=== PATIENT | male | born 1950 | race Caucasian/White ===

== ENCOUNTER 2021-07-19 17:57 | Inpatient (IN) | payer MEDICAID ==
[~2021-07-19] VITALS: Ht 167.6 cm; Wt 63.5 kg
[2021-07-19 21:35] LABS: COVID AG,FIA SOURCE NASOPHARYNGEAL
[2021-07-19 22:53] LABS: BASOPHILS % (AUTO) 0.6 % (0.0-2.0); EOSINOPHILS % (AUTO) 0.8 % (1.0-6.0); HEMATOCRIT 36.8 % (41-53); HEMOGLOBIN 12.7 g/dL (13.5-17.5); LYMPHOCYTES # (AUTO) 0.7 K/uL (1.0-4.8); LYMPHOCYTES % (AUTO) 18.8 % (22.0-44.0); MEAN CORPUSCULAR HEMOGLOBIN 34.3 pg (26.0-34.0); MEAN CORPUSCULAR HGB CONC 34.5 G/dL (31.0-37.0); MEAN CORPUSCULAR VOLUME 100 fL (80-100); MONOCYTES # (AUTO) 0.4 K/uL (0.1-1.0); MONOCYTES % (AUTO) 12.2 % (2.0-9.0); NEUTROPHILS # (AUTO) 2.3 K/uL (1.8-7.7); NEUTROPHILS % (AUTO) 67.6 % (40.0-70.0); PLATELET COUNT (AUTO) 154 K/uL (150-450); RED CELL DISTRIBUTION WIDTH 13.7 % (11.5-14.5)
[2021-07-19 23:07] LABS: ALANINE AMINOTRANSFERASE 26 U/L (12-78); ALBUMIN 3.1 g/dL (3.4-5.0); ALKALINE PHOSPHATASE 98 U/L (46-116); ANION GAP 7 mmol/L (8-16); ASPARTATE AMINOTRANSFERASE 36 U/L (15-37); BILIRUBIN,TOTAL 0.6 mg/dL (0.1-1.0); CALCIUM, TOTAL 8.6 mg/dL (8.8-10.5); CARBON DIOXIDE 28 mmol/L (22-29); CHLORIDE 102 mmol/L (98-107); CREATININE 0.99 mg/dL (0.60-1.30); GLUCOSE,RANDOM 83 mg/dL (70-110); SODIUM SERUM 137 mmol/L (136-145); TOTAL PROTEIN, SERUM 6.5 g/dL (6.4-8.2); UREA NITROGEN, BLOOD 12 mg/dL (7-18)
[2021-07-19 23:10] LABS: GLOMERULAR FILTR. RATE CALC > 60 mL/min (>60)
[2021-07-19] MEDS ORDERED: POTASSIUM CHLORIDE 20 MEQ ER TABLET PO ONE (23:45)
[2021-07-20 00:33] LABS: CHOL/HDL RATIO 3.2 (4.2-7.3); CHOLESTEROL 137 mg/dL (131-200); HDL CHOLESTEROL 43 mg/dL (40-60); LDL CHOL (CALC.) 73 mg/dL (0-130); TRIGLYCERIDES 104 mg/dL (15-150)
[2021-07-20 04:13] LABS: APPEARANCE,URINE CLEAR (CLEAR); BILIRUBIN,URINE NEGATIVE (NEGATIVE); GLUCOSE, URINE (UA) NEGATIVE (NEGATIVE); KETONES,URINE NEGATIVE (NEGATIVE); LEUKOCYTE ESTERASE ,URINE NEGATIVE (NEGATIVE); NITRATE,URINE NEGATIVE (NEGATIVE); OCCULT BLOOD,URINE NEGATIVE (NEGATIVE); PH,URINE 5.5 (5.0-8.0); PROTEIN,URINE NEGATIVE (NEGATIVE)
[2021-07-20 04:19] LABS: AMPHET/METH SCREEN,URINE NEGATIVE (NEGATIVE); BARBITURATE SCREEN, URINE NEGATIVE (NEGATIVE); BENZODIAZEPINES SCREEN,URINE NEGATIVE (NEGATIVE); CANNABINOID SCREEN,URINE NEGATIVE (NEGATIVE); COCAINE SCREEN,URINE NEGATIVE (NEGATIVE); METHADONE SCREEN, URINE NEGATIVE (NEGATIVE); OPIATE SCREEN,URINE NEGATIVE (NEGATIVE)
[2021-07-20 04:30] LABS: PHENCYCLIDINE SCREEN,URINE NEGATIVE (NEGATIVE)
[2021-07-21] MEDS ORDERED: DOCUSATE SODIUM 100 MG CAPSULE PO PRN (08:45)
[2021-07-21] MEDS ORDERED: CloNIDine HCL 0.1 MG TABLET PO PRN (08:45)
[2021-07-21] MEDS ORDERED: MAG HYDROX/AL HYDROX/SIMETH ES 30 ML SUSPENSION UDCUP PO PRN (08:45)
[2021-07-21] MEDS ORDERED: LOPERAMIDE HCL 2 MG CAPSULE PO PRN (08:45)
[2021-07-21] MEDS ORDERED: PETROLATUM,WHITE 28 GM JELLY TP PRN (08:45)
[2021-07-21] MEDS ORDERED: ALBUTEROL SULFATE HFA 90 MCG/PUFF 8 GM INHALER IH PRN (08:45)
[2021-07-21] MEDS ORDERED: NICOTINE 14 MG/24 HOUR PATCH TD PRN (08:45)
[2021-07-21] MEDS ORDERED: MAGNESIUM HYDROXIDE SUSPENSION 30 ML UDCUP PO PRN (08:45)
[2021-07-21] MEDS ORDERED: ONDANSETRON HCL 4 MG TABLET PO PRN (08:45)
[2021-07-21 19:45] VITALS: BP 138/77
[2021-07-22 08:00] VITALS: BP 120/65
[2021-07-22] MEDS: QUEtiapine FUMARATE 25 MG TABLET PO SCH ×2 (16:13→20:44)
[2021-07-22 16:40] VITALS: BP 129/78
[2021-07-23 08:33] VITALS: BP 122/67
[2021-07-23] MEDS: QUEtiapine FUMARATE 25 MG TABLET PO SCH ×3 (09:02→20:04)
[2021-07-23] MEDS: GuaiFENesin/D-METHORPHAN [SUGAR-FREE] 200-20MG/10 ML SYRUP UDCUP PO PRN (14:33)
[2021-07-23 16:00] VITALS: BP 103/68
[2021-07-24] MEDS: QUEtiapine FUMARATE 25 MG TABLET PO SCH ×3 (08:18→20:01)
[2021-07-24 09:12] VITALS: BP 134/70
[2021-07-24 16:31] VITALS: BP 119/66
[2021-07-24] MEDS: GuaiFENesin/D-METHORPHAN [SUGAR-FREE] 200-20MG/10 ML SYRUP UDCUP PO PRN (17:24)
[2021-07-24 21:05] VITALS: BP 116/80
[2021-07-24] MEDS: IBUPROFEN 400 MG TABLET PO PRN (21:09)
[2021-07-25 08:00] VITALS: BP 111/56
[2021-07-25] MEDS: QUEtiapine FUMARATE 25 MG TABLET PO SCH ×3 (08:34→20:01)
[2021-07-25 16:11] VITALS: BP 119/62
[2021-07-26 00:10] VITALS: BP 118/62
[2021-07-26] MEDS: IBUPROFEN 400 MG TABLET PO PRN (00:18)
[2021-07-26] MEDS: QUEtiapine FUMARATE 25 MG TABLET PO SCH ×3 (08:07→20:06)
[2021-07-26 16:02] VITALS: BP 125/86
[2021-07-27] MEDS: QUEtiapine FUMARATE 25 MG TABLET PO SCH ×3 (08:33→20:26)
[2021-07-27 09:00] VITALS: BP 128/87
[2021-07-27 16:35] VITALS: BP 126/67
[2021-07-27 21:11] LABS: COVID AG,FIA SOURCE NASAL SWAB
[2021-07-28 04:30] VITALS: BP 120/60
[2021-07-28] MEDS: QUEtiapine FUMARATE 25 MG TABLET PO SCH ×3 (08:14→20:31)
[2021-07-28 09:24] VITALS: BP 119/67
[2021-07-28 16:06] VITALS: BP 111/61
[2021-07-29 04:30] VITALS: BP 112/65
[2021-07-29 08:29] VITALS: BP 122/67
[2021-07-29] MEDS: QUEtiapine FUMARATE 25 MG TABLET PO SCH ×3 (09:12→20:50)
[2021-07-29] MEDS: GuaiFENesin/D-METHORPHAN [SUGAR-FREE] 200-20MG/10 ML SYRUP UDCUP PO PRN (09:14)
[2021-07-29 16:03] VITALS: BP 120/68
[2021-07-30 01:00] VITALS: BP 135/66
[2021-07-30 08:23] VITALS: BP 121/63
[2021-07-30] MEDS: QUEtiapine FUMARATE 25 MG TABLET PO SCH ×3 (08:49→20:50)
[2021-07-30] MEDS: GuaiFENesin/D-METHORPHAN [SUGAR-FREE] 200-20MG/10 ML SYRUP UDCUP PO PRN (10:25)
[2021-07-30 16:08] VITALS: BP 120/69
[2021-07-31] VITALS: BP 124/75
[2021-07-31 08:55] VITALS: BP 110/64
[2021-07-31] MEDS: QUEtiapine FUMARATE 25 MG TABLET PO SCH ×3 (08:59→20:55)
[2021-07-31 16:15] VITALS: BP 130/75
[2021-08-01 05:00] VITALS: BP 176/62
[2021-08-01 08:00] VITALS: BP 112/69
[2021-08-01] MEDS: QUEtiapine FUMARATE 25 MG TABLET PO SCH ×3 (08:56→20:49)
[2021-08-01 16:30] VITALS: BP 121/73
[2021-08-02] MEDS: GuaiFENesin/D-METHORPHAN [SUGAR-FREE] 200-20MG/10 ML SYRUP UDCUP PO PRN ×3 (02:04→21:50)
[2021-08-02 02:08] VITALS: BP 127/66
[2021-08-02 08:33] VITALS: BP 116/84
[2021-08-02] MEDS: QUEtiapine FUMARATE 25 MG TABLET PO SCH ×3 (09:27→20:43)
[2021-08-02 16:24] VITALS: BP 126/71
[2021-08-03 02:26] VITALS: BP 157/96
[2021-08-03] MEDS: ZOLPIDEM TARTRATE 10 MG TABLET PO PRN (02:28)
[2021-08-03] MEDS: GuaiFENesin/D-METHORPHAN [SUGAR-FREE] 200-20MG/10 ML SYRUP UDCUP PO PRN ×2 (02:29→20:24)
[2021-08-03 08:30] VITALS: BP 107/55
[2021-08-03] MEDS: QUEtiapine FUMARATE 25 MG TABLET PO SCH ×3 (08:40→20:24)
[2021-08-03 16:00] VITALS: BP 115/62
[2021-08-04 08:02] VITALS: BP 141/76
[2021-08-04] MEDS: QUEtiapine FUMARATE 25 MG TABLET PO SCH ×3 (08:40→20:11)
[2021-08-04 08:42] LABS: COVID AG,FIA SOURCE NASAL SWAB
[2021-08-04] MEDS: GuaiFENesin/D-METHORPHAN [SUGAR-FREE] 200-20MG/10 ML SYRUP UDCUP PO PRN (09:07)
[2021-08-04 16:35] VITALS: BP 102/60
[2021-08-05 06:48] LABS: BASOPHILS % (AUTO) 0.9 % (0.0-2.0); EOSINOPHILS % (AUTO) 1.9 % (1.0-6.0); HEMATOCRIT 32.1 % (41-53); HEMOGLOBIN 11.5 g/dL (13.5-17.5); LYMPHOCYTES # (AUTO) 0.9 K/uL (1.0-4.8); LYMPHOCYTES % (AUTO) 12.2 % (22.0-44.0); MEAN CORPUSCULAR HEMOGLOBIN 33.7 pg (26.0-34.0); MEAN CORPUSCULAR HGB CONC 35.8 G/dL (31.0-37.0); MEAN CORPUSCULAR VOLUME 94 fL (80-100); MONOCYTES # (AUTO) 0.6 K/uL (0.1-1.0); MONOCYTES % (AUTO) 8.7 % (2.0-9.0); NEUTROPHILS # (AUTO) 5.4 K/uL (1.8-7.7); NEUTROPHILS % (AUTO) 76.3 % (40.0-70.0); PLATELET COUNT (AUTO) 288 K/uL (150-450); RED BLOOD CELL COUNT(AUTO) 3.41 MIL/uL (4.50-5.90); RED CELL DISTRIBUTION WIDTH 13.6 % (11.5-14.5)
[2021-08-05 08:04] VITALS: BP 116/64
[2021-08-05] MEDS: QUEtiapine FUMARATE 25 MG TABLET PO SCH ×3 (09:16→20:26)
[2021-08-05 16:10] VITALS: BP 127/66
[2021-08-06 02:42] VITALS: BP 110/65
[2021-08-06 08:26] VITALS: BP 153/76
[2021-08-06] MEDS: QUEtiapine FUMARATE 25 MG TABLET PO SCH ×3 (09:00→20:15)
[2021-08-07] MEDS: GuaiFENesin/D-METHORPHAN [SUGAR-FREE] 200-20MG/10 ML SYRUP UDCUP PO PRN (01:44)
[2021-08-07 01:48] VITALS: BP 120/63
[2021-08-07] MEDS: QUEtiapine FUMARATE 25 MG TABLET PO SCH ×3 (09:44→20:09)
[2021-08-07 11:01] VITALS: BP 138/66
[2021-08-07 16:48] VITALS: BP 123/64
[2021-08-08] MEDS: LORazepam 2 MG TABLET PO PRN (05:26)
[2021-08-08 05:36] VITALS: BP 135/71
[2021-08-08] MEDS: QUEtiapine FUMARATE 25 MG TABLET PO SCH ×3 (08:59→20:37)
[2021-08-08 13:00] VITALS: BP 124/80
[2021-08-08 13:19] VITALS: BP 123/58
[2021-08-08 16:25] VITALS: BP 107/77
[2021-08-09 08:06] VITALS: BP 130/67
[2021-08-09] MEDS: QUEtiapine FUMARATE 25 MG TABLET PO SCH ×3 (08:51→21:01)
[2021-08-09 16:00] VITALS: BP 134/69
[2021-08-10 08:14] VITALS: BP 122/71
[2021-08-10] MEDS: QUEtiapine FUMARATE 25 MG TABLET PO SCH ×3 (09:03→20:39)
[2021-08-10 16:13] VITALS: BP 108/57
[2021-08-11 09:17] VITALS: BP 132/76
[2021-08-11] MEDS: QUEtiapine FUMARATE 25 MG TABLET PO SCH ×3 (09:45→20:33)
[2021-08-11 13:09] LABS: COVID AG,FIA SOURCE NASOPHARYNGEAL
[2021-08-11 16:22] VITALS: BP 121/77
[2021-08-12 01:30] VITALS: BP 120/60
[2021-08-12] MEDS: QUEtiapine FUMARATE 25 MG TABLET PO SCH ×3 (09:43→20:43)
[2021-08-12 09:51] VITALS: BP 119/71
[2021-08-12 16:15] VITALS: BP 124/69
[2021-08-13 08:02] VITALS: BP 112/55
[2021-08-13 08:52] VITALS: BP 112/55
[2021-08-13] MEDS: QUEtiapine FUMARATE 25 MG TABLET PO SCH ×3 (09:21→20:06)
[2021-08-13 17:18] VITALS: BP 105/75
[2021-08-14 08:20] VITALS: BP 118/54
[2021-08-14] MEDS: QUEtiapine FUMARATE 25 MG TABLET PO SCH ×3 (09:02→20:23)
[2021-08-14 16:18] VITALS: BP 117/64
[2021-08-15 02:17] VITALS: BP 112/74
[2021-08-15 08:00] VITALS: BP 132/66
[2021-08-15] MEDS: QUEtiapine FUMARATE 25 MG TABLET PO SCH ×3 (09:08→20:29)
[2021-08-15 16:56] VITALS: BP 114/69
[2021-08-16 02:21] VITALS: BP 120/78
[2021-08-16 08:48] VITALS: BP 151/79
[2021-08-16] MEDS: QUEtiapine FUMARATE 25 MG TABLET PO SCH ×3 (08:59→20:22)
[2021-08-16 16:04] VITALS: BP 105/61
[2021-08-17 08:06] VITALS: BP 131/70
[2021-08-17] MEDS: QUEtiapine FUMARATE 25 MG TABLET PO SCH ×3 (09:12→20:19)
[2021-08-17 18:07] VITALS: BP 107/60
[2021-08-18 08:09] VITALS: BP 124/74
[2021-08-18] MEDS: QUEtiapine FUMARATE 25 MG TABLET PO SCH ×3 (08:47→20:09)
[2021-08-18 10:47] LABS: COVID AG,FIA SOURCE NASOPHARYNGEAL
[2021-08-18 16:37] VITALS: BP 116/68
[2021-08-19 08:26] VITALS: BP 138/77
[2021-08-19] MEDS: QUEtiapine FUMARATE 25 MG TABLET PO SCH ×3 (08:26→20:12)
[2021-08-19 16:02] VITALS: BP 118/61
[2021-08-20 08:13] VITALS: BP 122/65
[2021-08-20] MEDS: QUEtiapine FUMARATE 25 MG TABLET PO SCH ×3 (09:37→20:15)
[2021-08-20 16:38] VITALS: BP 120/70
[2021-08-21 08:04] VITALS: BP 140/79
[2021-08-21] MEDS: QUEtiapine FUMARATE 25 MG TABLET PO SCH ×3 (09:31→20:09)
[2021-08-21 16:21] VITALS: BP 126/70
[2021-08-22] MEDS: QUEtiapine FUMARATE 25 MG TABLET PO SCH ×3 (08:34→20:50)
[2021-08-22 09:53] VITALS: BP 129/65
[2021-08-22 17:04] VITALS: BP 120/79
[2021-08-23 08:02] VITALS: BP 133/64
[2021-08-23] MEDS: QUEtiapine FUMARATE 25 MG TABLET PO SCH ×3 (08:50→20:15)
[2021-08-23 16:37] VITALS: BP 99/69
[2021-08-24 08:57] VITALS: BP 99/54
[2021-08-24] MEDS: QUEtiapine FUMARATE 25 MG TABLET PO SCH ×3 (09:03→20:59)
[2021-08-24 16:36] VITALS: BP 125/71
[2021-08-25] MEDS: QUEtiapine FUMARATE 25 MG TABLET PO SCH ×3 (08:10→20:12)
[2021-08-25 08:45] VITALS: BP 146/68
[2021-08-25 15:12] LABS: COVID AG,FIA SOURCE NASOPHARYNGEAL
[2021-08-25 16:23] VITALS: BP 103/58
[2021-08-26 08:02] VITALS: BP 138/75
[2021-08-26] MEDS: QUEtiapine FUMARATE 25 MG TABLET PO SCH ×3 (08:52→21:09)
[2021-08-26 16:13] VITALS: BP 115/73
[2021-08-27 08:33] VITALS: BP 164/91
[2021-08-27 08:41] VITALS: BP 164/91
[2021-08-27] MEDS: QUEtiapine FUMARATE 25 MG TABLET PO SCH ×3 (09:19→21:30)
[2021-08-27 16:05] VITALS: BP 110/70
[2021-08-28 04:45] VITALS: BP 108/67
[2021-08-28 08:05] VITALS: BP 134/70
[2021-08-28] MEDS: QUEtiapine FUMARATE 25 MG TABLET PO SCH ×3 (08:43→21:00)
[2021-08-28 16:01] VITALS: BP 124/68
[2021-08-29 08:26] VITALS: BP 130/70
[2021-08-29] MEDS: QUEtiapine FUMARATE 25 MG TABLET PO SCH ×3 (09:23→20:31)
[2021-08-29 16:03] VITALS: BP 110/80
[2021-08-30] MEDS: QUEtiapine FUMARATE 25 MG TABLET PO SCH ×3 (08:03→20:31)
[2021-08-30 08:11] VITALS: BP 101/71
[2021-08-30 16:11] VITALS: BP 137/59
[2021-08-31] MEDS: QUEtiapine FUMARATE 25 MG TABLET PO SCH ×3 (08:05→20:18)
[2021-08-31 09:51] VITALS: BP 118/63
[2021-08-31 16:02] VITALS: BP 133/73
[2021-09-01] MEDS: QUEtiapine FUMARATE 25 MG TABLET PO SCH ×3 (08:21→20:36)
[2021-09-01 09:18] VITALS: BP 140/70
[2021-09-01 11:20] LABS: COVID AG,FIA SOURCE NASAL SWAB
[2021-09-01 16:14] VITALS: BP 139/79
[2021-09-02 04:30] VITALS: BP 124/68
[2021-09-02 08:56] VITALS: BP 115/96
[2021-09-02] MEDS: QUEtiapine FUMARATE 25 MG TABLET PO SCH ×3 (09:30→20:33)
[2021-09-02 16:00] VITALS: BP 145/78
[2021-09-03 08:03] VITALS: BP 152/77
[2021-09-03] MEDS: QUEtiapine FUMARATE 25 MG TABLET PO SCH ×3 (09:06→20:23)
[2021-09-03 16:32] VITALS: BP 126/71
[2021-09-04 04:18] VITALS: BP 124/80
[2021-09-04 08:47] VITALS: BP 123/67
[2021-09-04] MEDS: QUEtiapine FUMARATE 25 MG TABLET PO SCH ×2 (09:00→17:07)
[2021-09-04 16:06] VITALS: BP 130/75
[2021-09-04] MEDS: QUEtiapine FUMARATE 100 MG TABLET PO SCH (20:52)
[2021-09-05 08:00] VITALS: BP 127/77
[2021-09-05] MEDS: QUEtiapine FUMARATE 25 MG TABLET PO SCH ×2 (09:25→16:44)
[2021-09-05 16:45] VITALS: BP 124/79
[2021-09-05] MEDS: QUEtiapine FUMARATE 100 MG TABLET PO SCH (21:06)
[2021-09-06] MEDS: QUEtiapine FUMARATE 25 MG TABLET PO SCH ×2 (08:40→16:30)
[2021-09-06 08:56] VITALS: BP 124/74
[2021-09-06 16:20] VITALS: BP 124/70
[2021-09-06] MEDS: QUEtiapine FUMARATE 100 MG TABLET PO SCH (20:36)
[2021-09-07 08:00] VITALS: BP 118/62
[2021-09-07] MEDS: QUEtiapine FUMARATE 25 MG TABLET PO SCH ×2 (08:59→16:31)
[2021-09-07 16:42] VITALS: BP 119/69
[2021-09-07] MEDS: QUEtiapine FUMARATE 100 MG TABLET PO SCH (20:34)
[2021-09-08] VITALS: BP 135/75
[2021-09-08] MEDS: QUEtiapine FUMARATE 25 MG TABLET PO SCH ×2 (08:07→16:18)
[2021-09-08 10:06] VITALS: BP 119/67
[2021-09-08 12:58] LABS: COVID AG,FIA SOURCE NASOPHARYNGEAL
[2021-09-08 16:07] VITALS: BP 125/74
[2021-09-08] MEDS: QUEtiapine FUMARATE 100 MG TABLET PO SCH (20:17)
[2021-09-09 03:00] VITALS: BP 109/79
[2021-09-09 08:08] VITALS: BP 118/82
[2021-09-09] MEDS: QUEtiapine FUMARATE 25 MG TABLET PO SCH ×2 (09:42→16:22)
[2021-09-09 16:54] VITALS: BP 128/77
[2021-09-09] MEDS: QUEtiapine FUMARATE 100 MG TABLET PO SCH (20:38)
[2021-09-10 08:07] VITALS: BP 126/64
[2021-09-10] MEDS: QUEtiapine FUMARATE 25 MG TABLET PO SCH ×2 (09:33→17:23)
[2021-09-10 16:17] VITALS: BP 114/61
[2021-09-10] MEDS: QUEtiapine FUMARATE 100 MG TABLET PO SCH (21:07)
[2021-09-11 08:00] VITALS: BP 100/61
[2021-09-11] MEDS: QUEtiapine FUMARATE 25 MG TABLET PO SCH ×2 (08:57→17:22)
[2021-09-11 16:23] VITALS: BP 129/69
[2021-09-11] MEDS: QUEtiapine FUMARATE 100 MG TABLET PO SCH (21:19)
[2021-09-11 23:47] LABS: COVID AG,FIA SOURCE NASAL SWAB
[2021-09-12 08:00] VITALS: BP 140/73
[2021-09-12] MEDS: QUEtiapine FUMARATE 25 MG TABLET PO SCH ×2 (08:34→17:02)
[2021-09-12 16:27] VITALS: BP 125/60
[2021-09-12] MEDS: QUEtiapine FUMARATE 100 MG TABLET PO SCH (20:35)
[2021-09-13] MEDS: QUEtiapine FUMARATE 25 MG TABLET PO SCH ×2 (08:25→17:04)
[2021-09-13 11:21] VITALS: BP 122/70
[2021-09-13 12:08] VITALS: BP 122/70
[2021-09-13 16:31] VITALS: BP 120/66
[2021-09-13] MEDS: QUEtiapine FUMARATE 100 MG TABLET PO SCH (20:36)
[2021-09-14 08:05] VITALS: BP 129/74
[2021-09-14] MEDS: QUEtiapine FUMARATE 25 MG TABLET PO SCH ×2 (09:00→16:58)
[2021-09-14 16:01] VITALS: BP 131/68
[2021-09-14] MEDS: QUEtiapine FUMARATE 100 MG TABLET PO SCH (20:37)
[2021-09-15 08:03] VITALS: BP 113/71
[2021-09-15] MEDS: QUEtiapine FUMARATE 25 MG TABLET PO SCH ×2 (08:14→17:15)
[2021-09-15 16:29] VITALS: BP 127/65
[2021-09-15] MEDS: QUEtiapine FUMARATE 100 MG TABLET PO SCH (20:27)
[2021-09-16] MEDS: LORazepam 2 MG TABLET PO PRN (00:52)
[2021-09-16 00:57] VITALS: BP 132/77
[2021-09-16] MEDS: QUEtiapine FUMARATE 25 MG TABLET PO SCH ×2 (09:05→16:54)
[2021-09-16 10:53] VITALS: BP 145/81
[2021-09-16 16:50] VITALS: BP 128/77
[2021-09-16] MEDS: QUEtiapine FUMARATE 100 MG TABLET PO SCH (20:06)
[2021-09-17] MEDS: QUEtiapine FUMARATE 25 MG TABLET PO SCH ×2 (08:25→16:13)
[2021-09-17 09:22] VITALS: BP 108/64
[2021-09-17 17:00] VITALS: BP 137/71
[2021-09-17] MEDS: QUEtiapine FUMARATE 100 MG TABLET PO SCH (20:24)
[2021-09-18 08:13] VITALS: BP 132/67
[2021-09-18] MEDS: QUEtiapine FUMARATE 25 MG TABLET PO SCH ×2 (08:29→16:04)
[2021-09-18 16:01] VITALS: BP 131/76
[2021-09-18] MEDS: QUEtiapine FUMARATE 100 MG TABLET PO SCH (20:09)
[2021-09-19] MEDS: QUEtiapine FUMARATE 25 MG TABLET PO SCH ×2 (08:03→16:09)
[2021-09-19 08:58] VITALS: BP 155/79
[2021-09-19 10:47] LABS: COVID AG,FIA SOURCE NASOPHARYNGEAL
[2021-09-19 16:34] VITALS: BP 139/74
[2021-09-19] MEDS: QUEtiapine FUMARATE 100 MG TABLET PO SCH (20:11)
[2021-09-20 08:10] VITALS: BP 139/69
[2021-09-20] MEDS: QUEtiapine FUMARATE 25 MG TABLET PO SCH ×2 (08:42→17:13)
[2021-09-20 10:07] VITALS: BP 139/69
[2021-09-20 16:12] VITALS: BP 116/58
[2021-09-20] MEDS: QUEtiapine FUMARATE 100 MG TABLET PO SCH (20:24)
[2021-09-21 08:45] VITALS: BP 172/54
[2021-09-21] MEDS: QUEtiapine FUMARATE 25 MG TABLET PO SCH ×2 (08:46→16:33)
[2021-09-21 16:06] VITALS: BP 150/82
[2021-09-21] MEDS: QUEtiapine FUMARATE 100 MG TABLET PO SCH (20:25)
[2021-09-22] MEDS: QUEtiapine FUMARATE 25 MG TABLET PO SCH ×2 (08:07→16:27)
[2021-09-22 08:51] VITALS: BP 147/76
[2021-09-22 16:40] VITALS: BP 135/75
[2021-09-22] MEDS: QUEtiapine FUMARATE 100 MG TABLET PO SCH (20:26)
[2021-09-23] MEDS: QUEtiapine FUMARATE 25 MG TABLET PO SCH ×2 (07:59→16:06)
[2021-09-23 08:00] VITALS: BP 133/63
[2021-09-23 16:02] VITALS: BP 133/66
[2021-09-23] MEDS: QUEtiapine FUMARATE 100 MG TABLET PO SCH (20:39)
[2021-09-24 04:00] VITALS: BP 131/65
[2021-09-24 07:33] LABS: COVID AG,FIA SOURCE NASAL SWAB
[2021-09-24 07:52] VITALS: BP 117/54
[2021-09-24] MEDS: ACETAMINOPHEN 325 MG TABLET PO PRN ×2 (07:52→17:03)
[2021-09-24] MEDS: QUEtiapine FUMARATE 25 MG TABLET PO SCH ×2 (08:02→17:03)
[2021-09-24 08:44] VITALS: BP 117/54
[2021-09-24 16:00] VITALS: BP 130/77
[2021-09-24 17:03] VITALS: BP 134/82
[2021-09-24] MEDS: QUEtiapine FUMARATE 100 MG TABLET PO SCH (21:00)
[2021-09-25] MEDS: LORazepam 2 MG TABLET PO PRN (00:24)
[2021-09-25 00:30] VITALS: BP_SYST 135; BP_SYST 137; BP_DIAS 73; BP_DIAS 76
[2021-09-25 08:10] VITALS: BP 128/73
[2021-09-25] MEDS: QUEtiapine FUMARATE 25 MG TABLET PO SCH ×2 (08:18→16:41)
[2021-09-25 09:16] LABS: COVID AG,FIA SOURCE NASOPHARYNGEAL
[2021-09-25 16:24] VITALS: BP 133/73
[2021-09-25] MEDS: QUEtiapine FUMARATE 100 MG TABLET PO SCH (20:30)
[2021-09-26 08:00] VITALS: BP 134/74
[2021-09-26] MEDS: QUEtiapine FUMARATE 25 MG TABLET PO SCH ×2 (08:29→16:07)
[2021-09-26] MEDS: HALOPERIDOL 5 MG TABLET PO PRN (08:30)
[2021-09-26] MEDS: LORazepam 2 MG TABLET PO PRN (08:30)
[2021-09-26 16:51] VITALS: BP 118/66
[2021-09-26] MEDS: QUEtiapine FUMARATE 100 MG TABLET PO SCH (20:07)
[2021-09-27 04:39] VITALS: BP 112/70
[2021-09-27 08:31] VITALS: BP 122/67
[2021-09-27] MEDS: QUEtiapine FUMARATE 25 MG TABLET PO SCH ×2 (08:46→16:36)
[2021-09-27 16:06] VITALS: BP 121/60
[2021-09-27] MEDS: HALOPERIDOL 5 MG TABLET PO PRN (16:36)
[2021-09-27] MEDS: QUEtiapine FUMARATE 100 MG TABLET PO SCH (20:30)
[2021-09-28] MEDS: QUEtiapine FUMARATE 25 MG TABLET PO SCH ×2 (08:00→16:55)
[2021-09-28 08:01] VITALS: BP 111/63
[2021-09-28 16:12] VITALS: BP 145/76
[2021-09-28] MEDS: QUEtiapine FUMARATE 100 MG TABLET PO SCH (20:35)
[2021-09-29 08:03] VITALS: BP 146/77
[2021-09-29] MEDS: QUEtiapine FUMARATE 25 MG TABLET PO SCH ×2 (08:10→17:48)
[2021-09-29 16:01] VITALS: BP 123/77
[2021-09-29] MEDS: QUEtiapine FUMARATE 100 MG TABLET PO SCH (21:32)
[2021-09-29] MEDS: ZOLPIDEM TARTRATE 10 MG TABLET PO PRN (23:57)
[2021-09-30 08:31] VITALS: BP 129/78
[2021-09-30] MEDS: QUEtiapine FUMARATE 25 MG TABLET PO SCH ×2 (09:07→16:07)
[2021-09-30 16:02] VITALS: BP 112/97
[2021-09-30] MEDS: QUEtiapine FUMARATE 100 MG TABLET PO SCH (20:26)
[2021-10-01 08:00] VITALS: BP 121/73
[2021-10-01] MEDS: QUEtiapine FUMARATE 25 MG TABLET PO SCH ×2 (08:28→16:14)
[2021-10-01 16:01] VITALS: BP 128/79
[2021-10-01] MEDS: QUEtiapine FUMARATE 100 MG TABLET PO SCH (20:24)
[2021-10-02] MEDS: QUEtiapine FUMARATE 25 MG TABLET PO SCH ×2 (08:05→15:41)
[2021-10-02 10:39] VITALS: BP 123/80
[2021-10-02 14:49] LABS: COVID AG,FIA SOURCE NASAL SWAB
[2021-10-02 16:31] VITALS: BP 116/61
[2021-10-02] MEDS: QUEtiapine FUMARATE 100 MG TABLET PO SCH (20:43)
[2021-10-03 08:00] VITALS: BP 120/75
[2021-10-03] MEDS: QUEtiapine FUMARATE 25 MG TABLET PO SCH ×3 (08:05→17:15)
[2021-10-03 16:19] VITALS: BP 115/89
[2021-10-03] MEDS: QUEtiapine FUMARATE 100 MG TABLET PO SCH (20:26)
[2021-10-03] MEDS: ZOLPIDEM TARTRATE 10 MG TABLET PO PRN (23:54)
[2021-10-04] MEDS: QUEtiapine FUMARATE 25 MG TABLET PO SCH ×2 (07:58→16:05)
[2021-10-04 08:07] VITALS: BP 135/72
[2021-10-04 17:07] VITALS: BP 148/82
[2021-10-04] MEDS: QUEtiapine FUMARATE 100 MG TABLET PO SCH (20:08)
[2021-10-05 08:01] VITALS: BP 139/80
[2021-10-05] MEDS: QUEtiapine FUMARATE 25 MG TABLET PO SCH ×2 (08:03→16:33)
[2021-10-05 16:13] VITALS: BP 127/75
[2021-10-05] MEDS: QUEtiapine FUMARATE 100 MG TABLET PO SCH (20:34)
[2021-10-06 08:00] VITALS: BP 122/71
[2021-10-06] MEDS: QUEtiapine FUMARATE 25 MG TABLET PO SCH ×2 (08:04→17:00)
[2021-10-06 16:31] VITALS: BP 111/65
[2021-10-06 16:32] VITALS: BP 111/65
[2021-10-06] MEDS: QUEtiapine FUMARATE 100 MG TABLET PO SCH (20:40)
[2021-10-07 08:21] VITALS: BP 134/76
[2021-10-07] MEDS: QUEtiapine FUMARATE 25 MG TABLET PO SCH ×2 (08:26→16:47)
[2021-10-07] MEDS: MULTIVITAMINS WITH MINERALS, THERAPEUTIC TABLET PO SCH (13:09)
[2021-10-07 16:25] VITALS: BP 131/92
[2021-10-07] MEDS: QUEtiapine FUMARATE 100 MG TABLET PO SCH (20:19)
[2021-10-08] MEDS: QUEtiapine FUMARATE 25 MG TABLET PO SCH ×2 (08:14→16:34)
[2021-10-08] MEDS: MULTIVITAMINS WITH MINERALS, THERAPEUTIC TABLET PO SCH (08:15)
[2021-10-08 08:51] VITALS: BP 147/81
[2021-10-08 16:00] VITALS: BP 127/66
[2021-10-08] MEDS: QUEtiapine FUMARATE 100 MG TABLET PO SCH (20:10)
[2021-10-09 08:00] VITALS: BP 124/71
[2021-10-09] MEDS: MULTIVITAMINS WITH MINERALS, THERAPEUTIC TABLET PO SCH (08:10)
[2021-10-09] MEDS: QUEtiapine FUMARATE 25 MG TABLET PO SCH ×2 (08:10→16:48)
[2021-10-09 14:28] LABS: COVID AG,FIA SOURCE NASAL SWAB
[2021-10-09 19:03] VITALS: BP 130/77
[2021-10-09] MEDS: QUEtiapine FUMARATE 100 MG TABLET PO SCH (20:40)
[2021-10-10] MEDS: QUEtiapine FUMARATE 25 MG TABLET PO SCH ×2 (08:09→16:24)
[2021-10-10] MEDS: MULTIVITAMINS WITH MINERALS, THERAPEUTIC TABLET PO SCH (08:09)
[2021-10-10 16:00] VITALS: BP 148/75
[2021-10-10] MEDS: QUEtiapine FUMARATE 100 MG TABLET PO SCH (21:15)
[2021-10-11 02:00] VITALS: BP 115/59
[2021-10-11] MEDS: MULTIVITAMINS WITH MINERALS, THERAPEUTIC TABLET PO SCH (08:08)
[2021-10-11] MEDS: QUEtiapine FUMARATE 25 MG TABLET PO SCH ×2 (08:09→16:00)
[2021-10-11 10:33] VITALS: BP 142/77
[2021-10-11 16:07] VITALS: BP 116/77
[2021-10-11] MEDS: QUEtiapine FUMARATE 100 MG TABLET PO SCH (20:05)
[2021-10-12 06:44] VITALS: BP 141/73
[2021-10-12 06:45] LABS: COVID AG,FIA SOURCE NASAL SWAB
[2021-10-12] MEDS: QUEtiapine FUMARATE 25 MG TABLET PO SCH ×2 (08:24→16:50)
[2021-10-12] MEDS: MULTIVITAMINS WITH MINERALS, THERAPEUTIC TABLET PO SCH (08:24)
[2021-10-12 10:00] VITALS: BP 138/77
[2021-10-12 16:48] VITALS: BP 138/68
[2021-10-12] MEDS: QUEtiapine FUMARATE 100 MG TABLET PO SCH (21:02)
[2021-10-13] MEDS: MULTIVITAMINS WITH MINERALS, THERAPEUTIC TABLET PO SCH (08:59)
[2021-10-13] MEDS: QUEtiapine FUMARATE 25 MG TABLET PO SCH ×2 (08:59→16:10)
[2021-10-13 10:05] VITALS: BP 132/75
[2021-10-13] MEDS: QUEtiapine FUMARATE 100 MG TABLET PO SCH (20:13)
[2021-10-14 07:54] VITALS: BP 130/75
[2021-10-14] MEDS: QUEtiapine FUMARATE 25 MG TABLET PO SCH ×2 (09:11→16:18)
[2021-10-14] MEDS: MULTIVITAMINS WITH MINERALS, THERAPEUTIC TABLET PO SCH (09:11)
[2021-10-14] MEDS: QUEtiapine FUMARATE 100 MG TABLET PO SCH (21:19)
[2021-10-15] MEDS: MULTIVITAMINS WITH MINERALS, THERAPEUTIC TABLET PO SCH (08:14)
[2021-10-15] MEDS: QUEtiapine FUMARATE 25 MG TABLET PO SCH ×2 (08:14→16:01)
[2021-10-15 10:07] VITALS: BP 119/74
[2021-10-15 16:00] VITALS: BP 123/70
[2021-10-15] MEDS: QUEtiapine FUMARATE 100 MG TABLET PO SCH (21:02)
[2021-10-16] MEDS: MULTIVITAMINS WITH MINERALS, THERAPEUTIC TABLET PO SCH (09:23)
[2021-10-16] MEDS: QUEtiapine FUMARATE 25 MG TABLET PO SCH ×2 (09:23→17:19)
[2021-10-16 16:00] VITALS: BP 126/63
[2021-10-16] MEDS: QUEtiapine FUMARATE 100 MG TABLET PO SCH (20:12)
[2021-10-17] MEDS: MULTIVITAMINS WITH MINERALS, THERAPEUTIC TABLET PO SCH (08:48)
[2021-10-17] MEDS: QUEtiapine FUMARATE 25 MG TABLET PO SCH ×2 (08:48→15:56)
[2021-10-17] MEDS: QUEtiapine FUMARATE 100 MG TABLET PO SCH (20:41)
[2021-10-18] MEDS: MULTIVITAMINS WITH MINERALS, THERAPEUTIC TABLET PO SCH (09:05)
[2021-10-18] MEDS: QUEtiapine FUMARATE 25 MG TABLET PO SCH ×2 (09:05→16:22)
[2021-10-18 14:08] LABS: COVID AG,FIA SOURCE NASAL SWAB
[2021-10-18] MEDS: QUEtiapine FUMARATE 100 MG TABLET PO SCH (20:24)
[2021-10-19] MEDS: MULTIVITAMINS WITH MINERALS, THERAPEUTIC TABLET PO SCH (08:13)
[2021-10-19] MEDS: QUEtiapine FUMARATE 25 MG TABLET PO SCH ×2 (08:23→16:41)
[2021-10-19 10:28] VITALS: BP 119/80
[2021-10-19] MEDS: QUEtiapine FUMARATE 100 MG TABLET PO SCH (20:59)
[2021-10-20] MEDS: QUEtiapine FUMARATE 25 MG TABLET PO SCH ×2 (08:30→16:16)
[2021-10-20] MEDS: MULTIVITAMINS WITH MINERALS, THERAPEUTIC TABLET PO SCH (08:30)
[2021-10-20 10:13] VITALS: BP 133/80
[2021-10-20] MEDS: QUEtiapine FUMARATE 100 MG TABLET PO SCH (20:34)
[2021-10-21] MEDS: MULTIVITAMINS WITH MINERALS, THERAPEUTIC TABLET PO SCH (08:11)
[2021-10-21] MEDS: QUEtiapine FUMARATE 25 MG TABLET PO SCH ×2 (08:12→16:21)
[2021-10-21 08:30] VITALS: BP 133/76
[2021-10-21 12:11] VITALS: BP 157/102
[2021-10-21 16:02] VITALS: BP 107/71
[2021-10-21] MEDS: QUEtiapine FUMARATE 100 MG TABLET PO SCH (20:32)
[2021-10-22 09:00] VITALS: BP 150/89
[2021-10-22] MEDS: QUEtiapine FUMARATE 25 MG TABLET PO SCH ×2 (10:39→16:10)
[2021-10-22] MEDS: MULTIVITAMINS WITH MINERALS, THERAPEUTIC TABLET PO SCH (10:39)
[2021-10-22 16:19] VITALS: BP 131/96
[2021-10-22] MEDS: QUEtiapine FUMARATE 100 MG TABLET PO SCH (20:19)
[2021-10-23] MEDS: MULTIVITAMINS WITH MINERALS, THERAPEUTIC TABLET PO SCH (09:12)
[2021-10-23] MEDS: QUEtiapine FUMARATE 25 MG TABLET PO SCH ×2 (09:13→16:07)
[2021-10-23 09:37] VITALS: BP 148/77
[2021-10-23 16:14] VITALS: BP 155/72
[2021-10-23] MEDS: QUEtiapine FUMARATE 100 MG TABLET PO SCH (20:13)
[2021-10-24 09:51] VITALS: BP 144/82
[2021-10-24] MEDS: MULTIVITAMINS WITH MINERALS, THERAPEUTIC TABLET PO SCH (09:52)
[2021-10-24] MEDS: QUEtiapine FUMARATE 25 MG TABLET PO SCH ×2 (09:52→15:57)
[2021-10-24 16:10] VITALS: BP 131/78
[2021-10-24] MEDS: QUEtiapine FUMARATE 100 MG TABLET PO SCH (20:37)
[2021-10-25] MEDS: QUEtiapine FUMARATE 25 MG TABLET PO SCH ×2 (08:42→15:57)
[2021-10-25] MEDS: MULTIVITAMINS WITH MINERALS, THERAPEUTIC TABLET PO SCH (08:42)
[2021-10-25 15:43] LABS: COVID AG,FIA SOURCE NASAL SWAB
[2021-10-25 16:37] VITALS: BP 115/65
[2021-10-25] MEDS: QUEtiapine FUMARATE 100 MG TABLET PO SCH (21:10)
[2021-10-26 08:00] VITALS: BP 139/85
[2021-10-26] MEDS: MULTIVITAMINS WITH MINERALS, THERAPEUTIC TABLET PO SCH (08:30)
[2021-10-26] MEDS: QUEtiapine FUMARATE 25 MG TABLET PO SCH ×2 (08:30→16:33)
[2021-10-26 16:32] VITALS: BP 129/72
[2021-10-26] MEDS: QUEtiapine FUMARATE 100 MG TABLET PO SCH (20:26)
[2021-10-27 08:17] VITALS: BP 151/99
[2021-10-27 08:25] VITALS: BP 151/99
[2021-10-27] MEDS: QUEtiapine FUMARATE 25 MG TABLET PO SCH ×2 (08:28→16:12)
[2021-10-27] MEDS: MULTIVITAMINS WITH MINERALS, THERAPEUTIC TABLET PO SCH (08:28)
[2021-10-27 16:04] VITALS: BP 132/76
[2021-10-27] MEDS: QUEtiapine FUMARATE 100 MG TABLET PO SCH (20:45)
[2021-10-28 09:00] VITALS: BP 157/84
[2021-10-28] MEDS: MULTIVITAMINS WITH MINERALS, THERAPEUTIC TABLET PO SCH (09:22)
[2021-10-28] MEDS: QUEtiapine FUMARATE 25 MG TABLET PO SCH ×2 (09:22→16:17)
[2021-10-28 16:43] VITALS: BP 132/86
[2021-10-28] MEDS: QUEtiapine FUMARATE 100 MG TABLET PO SCH (20:25)
[2021-10-29] MEDS: MULTIVITAMINS WITH MINERALS, THERAPEUTIC TABLET PO SCH (08:19)
[2021-10-29] MEDS: QUEtiapine FUMARATE 25 MG TABLET PO SCH ×2 (08:20→17:04)
[2021-10-29 09:00] VITALS: BP 123/72
[2021-10-29 16:22] VITALS: BP 138/73
[2021-10-29] MEDS: QUEtiapine FUMARATE 100 MG TABLET PO SCH (20:42)
[2021-10-30] MEDS: MULTIVITAMINS WITH MINERALS, THERAPEUTIC TABLET PO SCH (09:24)
[2021-10-30] MEDS: QUEtiapine FUMARATE 25 MG TABLET PO SCH ×2 (09:24→16:50)
[2021-10-30 11:36] VITALS: BP 142/83
[2021-10-30 16:29] VITALS: BP 123/74
[2021-10-30] MEDS: QUEtiapine FUMARATE 100 MG TABLET PO SCH (20:38)
[2021-10-31 08:33] VITALS: BP 139/74
[2021-10-31] MEDS: MULTIVITAMINS WITH MINERALS, THERAPEUTIC TABLET PO SCH (08:34)
[2021-10-31] MEDS: QUEtiapine FUMARATE 25 MG TABLET PO SCH ×2 (08:34→16:19)
[2021-10-31 16:06] VITALS: BP 147/74
[2021-10-31] MEDS: QUEtiapine FUMARATE 100 MG TABLET PO SCH (20:51)
[2021-11-01] MEDS: QUEtiapine FUMARATE 25 MG TABLET PO SCH (08:03)
[2021-11-01] MEDS: MULTIVITAMINS WITH MINERALS, THERAPEUTIC TABLET PO SCH (08:03)
[2021-11-01 08:18] VITALS: BP 145/78
[2021-11-01] MEDS ORDERED: QUET25TA36 PO (11:01)
[2021-11-01] MEDS ORDERED: QUET100T34 PO (11:01)
[2021-11-01] MEDS ORDERED: MULT-1239 PO (11:01)
== END 2021-11-01 09:40 | DRG 750 ==
LOC: EMS 18:00 → 3EI 07-21 17:00 → 3EX 09-21 20:30 → 3EC 09-25 10:12
PROVIDERS: ADMIT Psychiatry & Neurology Psychiatry; ATTEND Psychiatry & Neurology Psychiatry
DX: F20.0 Paranoid schizophrenia (principal); U07.1 COVID-19; Z59.00 Homelessness unspecified; D64.9 Anemia, unspecified; D72.819 Decreased white blood cell count, unspecified; E87.6 Hypokalemia; K59.09 Other constipation; G89.29 Other chronic pain; Z79.899 Other long term (current) drug therapy; Z91.81 History of falling
CPT/HCPCS: 70450; 71045; 80053; 80061; 81003; 84132; 85025; 93005; 97110; 97116; 97162; 97166; 97530; 97535; 99285; G0378; G0480; 36415-L1; 36415-TC

== ENCOUNTER 2022-04-14 17:24 | Emergency (ER) | payer MEDICARE, MEDICAID ==
[~2022-04-14] VITALS: Ht 162.6 cm; Wt 60.0 kg
[~2022-04-14 17:24] MED LIST: MULT-1239 PO; QUET100T34 PO; QUET25TA36 PO
[2022-04-14 21:43] LABS: BASOPHILS % (AUTO) 0.8 % (0.0-2.0); EOSINOPHILS % (AUTO) 3.9 % (1.0-6.0); HEMATOCRIT 39.6 % (41-53); HEMOGLOBIN 13.7 g/dL (13.5-17.5); LYMPHOCYTES # (AUTO) 1.4 K/uL (1.0-4.8); MEAN CORPUSCULAR HEMOGLOBIN 33.8 pg (26.0-34.0); MEAN CORPUSCULAR HGB CONC 34.7 G/dL (31.0-37.0); MEAN CORPUSCULAR VOLUME 97 fL (80-100); MONOCYTES # (AUTO) 0.4 K/uL (0.1-1.0); NEUTROPHILS # (AUTO) 2.8 K/uL (1.8-7.7); NEUTROPHILS % (AUTO) 57.3 % (40.0-70.0); PLATELET COUNT (AUTO) 203 K/uL (150-450); RED BLOOD CELL COUNT(AUTO) 4.06 MIL/uL (4.50-5.90); RED CELL DISTRIBUTION WIDTH 13.6 % (11.5-14.5)
[2022-04-14 21:47] LABS: COVID AG,FIA SOURCE NASOPHARYNGEAL
[2022-04-14 21:52] LABS: ANION GAP 3 mmol/L (8-16); CALCIUM, TOTAL 8.7 mg/dL (8.8-10.5); CARBON DIOXIDE 29 mmol/L (22-29); CHLORIDE 94 mmol/L (98-107); CREATININE 0.73 mg/dL (0.60-1.30); GLOMERULAR FILTR. RATE CALC > 60 mL/min (>60); GLUCOSE,RANDOM 90 mg/dL (70-110); POTASSIUM 3.6 mmol/L (3.5-5.1); SODIUM SERUM 126 mmol/L (136-145); UREA NITROGEN, BLOOD 7 mg/dL (7-18)
[2022-04-14 22:29] LABS: APPEARANCE,URINE CLEAR (CLEAR); BILIRUBIN,URINE NEGATIVE (NEGATIVE); GLUCOSE, URINE (UA) NEGATIVE (NEGATIVE); KETONES,URINE NEGATIVE (NEGATIVE); LEUKOCYTE ESTERASE ,URINE NEGATIVE (NEGATIVE); NITRATE,URINE NEGATIVE (NEGATIVE); OCCULT BLOOD,URINE NEGATIVE (NEGATIVE); PROTEIN,URINE NEGATIVE (NEGATIVE); SPECIFIC GRAVITIY, URINE 1.008 (1.003-1.030); UROBILINOGEN,URINE <=1.0 mg/dL (<=1.0)
[2022-04-14 22:46] LABS: BACTERIA,URINE None Seen /HPF (None Seen); RBC,URINE None Seen /HPF (0-2); WBC,URINE None Seen /HPF (0-5)
[2022-04-14 23:03] VITALS: BP 134/86
== END 2022-04-14 23:10 | disposition home or self-care (01) ==
LOC: EMS 17:24
DX: E87.1 Hypo-osmolality and hyponatremia (principal); Z79.899 Other long term (current) drug therapy; Z59.00 Homelessness unspecified; Z20.822 Contact with and (suspected) exposure to COVID-19
CPT/HCPCS: 80048; 81001; 85025; 99283